=== PATIENT | male | born 1985 | race Caucasian/White ===

== ENCOUNTER 2025-02-28 13:50 | Emergency (ER) | payer OTHER, SELFPAY ==
[2025-02-28 13:56] VITALS: BP 154/95; PULSE 91; RESP 18; TEMP 37.1; O2SAT 96; BMI 30.8
--- NOTE | 2025-02-28 14:13 | CRLHL7_ITS ---
For Patients: As a result of the Century Cures Act, medical imaging exams and procedure reports are released immediately into your electronic medical record. You may view this report before your referring provider. If you have questions, please contact your health care provider. Indication: Pain, pulsating comes and goes, discomfort, lump Comparison: None available. Technique: AP and lateral views right tibia and fibula were obtained. Findings: There is no displaced fracture or dislocation. The joint spaces are grossly preserved. The soft tissues are unremarkable. Impression: No acute osseus abnormality. No obvious soft tissue lesion. Correlate with area of clinical concern and consider follow-up with ultrasound for improved characterization of focal soft tissue changes. Dictated by Jorge Echeverria MD @ 02/28/2025 3:20:27 PM (Electronically Signed)
--- NOTE | 2025-02-28 14:14 | ED.GENADULT ---
HPI - General Adult General Date Seen: 02/28/25 Chief complaint: Extremity Pain/Injury, Lower Stated complaint: lump on right leg causing pain Time Seen by Provider: 02/28/25 13:51 History of Present Illness HPI narrative: Patient is a 39-year-old here for evaluation of his right lower leg. He says that yesterday he felt like there was a lump on mid lateral lower leg. He says he kind of pushed on it massaged it and then developed a sharp pulsating pain in the area. Since then, that pain has come and gone. It tends to bother him most when he sits or lays down for long periods of time. It feels better when he is up walking. He has not had any swelling, erythema, no injury, no weakness or numbness. Pain radiates up the leg to the hip area any does have some back pain which has been present for some time, on the right more than the left. He has not taken any medications because he and his say they looked on [employer] and it said a few blood clots you should not take ibuprofen. [employer] mention subsets diagnoses as tumor, DVT, aneurysm, so they thought they better get it checked out. General health is good, he does smoke. Related Data Home Medications ?Medication ?Instructions ?Recorded ?Confirmed omeprazole 20 mg capsule,delayed 20 mg PO QDAY 02/28/25 02/28/25 release Previous Rx's ?Medication ?Instructions ?Recorded ibuprofen 800 mg tablet 800 mg PO Q8H PRN pain #20 tabs 02/28/25 Allergies Allergy/AdvReac Type Severity Reaction Status Date / Time No Known Drug Allergies Allergy Verified 02/28/25 14:01 Review of Systems Status of ROS: Reports: 6 or more systems reviewed and unremarkable except as noted in History and below Exam Narrative: Exam Narrative: Vital signs reviewed, he is a little hypertensive here. General: Alert, well-appearing, looks comfortable. Heart: Regular rate and rhythm without murmur. Lungs: Clear. Abdomen: Soft and nontender. No masses, no organomegaly. Extremities: The right leg is normal in appearance. There is no edema, erythema, rash or mass. The lower leg specifically is normal, nontender, no mass, swelling or other abnormalities. I am not able to reproduce his pain with palpation. Distal CMS is normal. Calf is nontender. Const: Vital Signs, click to edit/add: Vital Signs - 24 hr 02/28/25 13:56 Temperature 98.7 F Pulse Rate [Right Pulse Oximeter] 91 Respiratory Rate 18 Blood Pressure [Ri ght Upper Arm] 154/95 H Pulse Oximetry 96 Oxygen Delivery Me thod Room Air Course Course ED Course: Based on his exam, it is little difficult to pinpoint what might be going on here. I do not know what to make of the lump that he reports feeling yesterday, certainly do not see anything like that today. It is possible this represents radiculopathy, I do think it is reasonable to get an x-ray just make sure there are no surprising bony changes X-ray by my review is negative. Final radiology read likewise negative. Discussed with patient his that I at this time cannot tell them exactly why he is having pain although I do not think it is related to a serious cause such as DVT, tumor, aneurysm, infection or other other concerns. I think it is reasonable to treat symptomatically right now, he would like to just try ibuprofen 800 mg as that worked well for him in the past. Discussed that he will need follow-up in clinic unless symptoms resolve. Discussed reasons to return such as severe uncontrolled pain, new symptoms such as swelling, redness, fever, weakness or numbness. Vital Signs Vital signs: Initial Vital Signs Temperature 98.7 F 02/28/25 13:56 Temperature Source Temporal Artery Scan 02/28/25 13:56 Pulse Rate 91 02/28/25 13:56 Pulse Rhythm Regular 02/28/25 13:56 Pulse Strength 3+ Normal 02/28/25 13:56 Respiratory Rate 18 02/28/25 13:56 Blood Pressure 154/95 H 02/28/25 13:56 Blood Pressure Mean 114 H 02/28/25 13:56 Blood Pressure Position Sitting 02/28/25 13:56 Pulse Oximetry 96 02/28/25 13:56 Oxygen Delivery Method Room Air 02/28/25 13:56 Vital Signs Temperature 98.7 F 02/28/25 13:56 Pulse Rate 91 02/28/25 13:56 Respiratory Rate 18 02/28/25 13:56 Blood Pressure 154/95 H 02/28/25 13:56 Pulse Oximetry 96 02/28/25 13:56 Oxygen Delivery Method Room Air 02/28/25 13:56 Temperature 98.7 F 02/28/25 13:56 Pulse Rate 91 02/28/25 13:56 Respiratory Rate 18 02/28/25 13:56 Blood Pressure 154/95 H 02/28/25 13:56 Pulse Oximetry 96 02/28/25 13:56 Oxygen Delivery Method Room Air 02/28/25 13:56 Discharge Plan Discharge Clinical Impression: Leg pain, right Patient Disposition: Home, Self-Care Condition: Stable Instructions: Leg Pain (ED) Additional Instructions: Your x-rays to me look normal, no evidence of any bony abnormalities. Your exam does not suggest an infection, blood clot, tumor, aneurysm or other localized finding. Pain may be radicular, coming from her back or nerve compression somewhere else in your leg. For now, I think it is reasonable to treat symptomatically. Take ibuprofen, 800 mg 3 times daily as needed. If your pain is worsening or severe, if you have new symptoms such as numbness or weakness, bowel or bladder changes, fevers, etcetera, I would want you to come back to the emergency department. Otherwise, please follow-up with primary care in the next week or so for recheck and to determine if any other evaluation is needed. Prescriptions: New ibuprofen 800 mg tablet 800 mg PO Q8H PRN (Reason: pain) Qty: 20 0RF No Action omeprazole 20 mg capsule,delayed release(DR/EC) 20 mg PO QDAY Follow Up/Referrals: Selvin Yepez MD [Primary Care Provider, Family Practice] Stand Alone Forms: MyHealth Info Instructions
== END 2025-02-28 15:38 | disposition home or self-care (01) ==
PROVIDERS: Emergency Provider Emergency Medicine; PCP Family Medicine
DX: M79.604 Pain in right leg (principal)
CPT/HCPCS: 73590; 99283; 99284